=== PATIENT | female | born 1980 ===

== ENCOUNTER 2017-06-18 16:35 | Inpatient (IN) | payer BC, OTHER ==
[2017-06-18 18:27] LABS: URINE BILIRUBIN NEGATIVE (NEGATIVE); URINE BLOOD NEGATIVE (NEGATIVE); URINE GLUCOSE (UA) NEGATIVE (NEGATIVE); URINE LEUKOCYTE ESTERASE NEGATIVE Leu/uL (NEGATIVE); URINE PROTEIN NEGATIVE mg/dL (<30 mg/dL); URINE UROBILINOGEN 0.2 E.U./dL (<1 E.U./dL)
[2017-06-18 18:30] LABS: URINE APPEARANCE CLEAR (CLEAR); URINE COLOR YELLOW (YELLOW)
[2017-06-18 18:36] LABS: HCG,QUALITATIVE URINE NEGATIVE (NEGATIVE)
[2017-06-18 18:49] LABS: BASO # 0.01 K/mm3 (0.0-2.0); BASO % 0.2 % (0.0-3.0); EOS % 0.2 % (1.5-5.0); GRAN # 2.61 (1.4-6.5); GRAN % 47.8 % (50.0-68.0); HEMOGLOBIN 8.3 g/dL (12.0-16.0); LYMPH # 2.1 (1.2-3.4); LYMPH % 39.2 % (22.0-35.0); MEAN CORPUSCULAR HEMOGLOBIN 16.4 pg (25.0-35.0); MEAN CORPUSCULAR HGB CONC 27.3 g/dl (31.0-37.0); MEAN PLATELET VOLUME 8.9 fl (7.0-11.0); MONO # 0.7 (0.1-0.6); MONO % 12.6 % (1.0-6.0); RBC 5.07 10^6/uL (3.5-6.1); RED CELL DISTRIBUTION WIDTH 17.2 % (11.5-14.5); WHITE BLOOD COUNT 5.5 10^3/ul (4.5-11.0)
[2017-06-18 18:55] LABS: INR 1.15 (0.93-1.08); PARTIAL THROMBOPLASTIN TIME 29.1 Seconds (25.1-36.5); PROTHROMBIN TIME 13.2 SECONDS (9.4-12.5)
[2017-06-18 18:56] LABS: ALB/GLOB RATIO 1.2 (1.1-1.8); ALBUMIN 4.1 g/dL (3.0-4.8); ALT/SGPT 52 U/L (7-56); AST/SGOT 44 U/L (14-36); BLOOD UREA NITROGEN 12 mg/dL (7-21); CALCIUM 9.9 mg/dL (8.4-10.5); GFR AFRICAN-AMERICAN > 60; GFR NON-AFRICAN AMERICAN > 60
[2017-06-18 19:06] LABS: B-TYPE NATRIURETIC PEPTIDE 81.9 pg/mL (0-450)
[2017-06-18 19:08] LABS: TROPONIN I < 0.01 ng/mL
[2017-06-18 19:31] LABS: T4 > 24.9 ug/dL (5.5-11.0)
--- NOTE | 2017-06-18 20:31 | ED PDOC ---
Arrival/HPI - General Chief Complaint: Weakness/Neurological Deficit Time Seen by Provider: 06/18/17 17:31 Historian: Patient - History of Present Illness Narrative History of Present Illness (Text): 06/18/17 20:28 Patient is a 37 yo female with past medical history of hyperthyroidism, "I think Graves disease", noncompliance with thyroid medication for 6 months, presents to Emergency Department from outside clinic reportedly with history of abnormal EKG and dyspnea with exertion. Patient states for past several weeks she has felt shaky and occasionally dizzy and lightheaded. Denies heat/cold intolerance, denies diarrhea. States she became concerned over past three days when she became short of breath with exertion, specifically walking up two flights of steps to her apartment. SHE CURRENTLY DENIES CHEST PAIN OR PLEURITIC PAIN. She denies calf pain or swelling. Denies fevers or chills. Denies bloody urine or stool. States she has had heavier menstrual bleeding over past several months. Time/Duration: Prior to Arrival Symptom Onset: Gradual Past Medical History - Cardiac Hx Cardiac Disorders: No - Pulmonary Hx Respiratory Disorders: No - Neurological Hx Neurological Disorder: No - HEENT Hx HEENT Disorder: No - Renal Hx Renal Disorder: No - Endocrine/Metabolic Hx Hyperthyroidism: Yes - Hematological/Oncological Hx Blood Disorders: No - Integumentary Hx Dermatological Disorder: No - Musculoskeletal/Rheumatological Hx Musculoskeletal Disorders: No - Gastrointestinal Hx Gastrointestinal Disorders: No - Genitourinary/Gynecological Hx Genitourinary Disorders: No - Psychiatric Hx Psychophysiologic Disorder: No Hx Substance Use: No - Surgical History Hx Tubal Ligation: Yes Other/Comment: Bladder lift - Anesthesia Hx Anesthesia: No Family/Social History Family/Social History: Unknown Family HX Smoking Status: Never Smoked Hx Alcohol Use: No Hx Substance Use: No Allergies/Home Meds Allergies/Adverse Reactions: Allergies No Known Allergies Allergy (Verified 06/18/17 16:51) Home Medications: Home Meds Medication Instructions Recorded Confirmed Methimazole [Methimazole] 20 mg PO BID 11/18/15 06/18/17 Review of Systems - Review of Systems Constitutional: Fatigue. absent: Fevers Eyes: absent: Vision Changes, Photophobia, Eye Pain ENT: absent: Hearing Changes, Sore Throat, Rhinorrhea Respiratory: absent: SOB, Wheezing Cardiovascular: Palpitations, GARCIA. absent: Chest Pain, Edema, Calf Pain, Orthopnea, Syncope Gastrointestinal: absent: Abdominal Pain, Nausea, Vomiting, Appetite Changes Genitourinary Female: Vaginal Bleeding. absent: Dysuria, Frequency, Hematuria, Vaginal Discharge Musculoskeletal: absent: Back Pain Skin: absent: Rash Neurological: Dizziness. absent: Headache, Focal Weakness, Gait Changes Endocrine: absent: Diaphoresis, Polyuria, Polydipsia Hemo/Lymphatic: absent: Easy Bleeding, Easy Bruising Psychiatric: absent: Depression Physical Exam Vital Signs Reviewed: Yes Vital Signs Temp Pulse Resp BP Pulse Ox 06/18/17 21:04 100 H 18 113/71 100 06/18/17 16:53 98.1 F 104 H 19 117/64 99 Temperature: Afebrile Pulse: Tachycardic Respiratory Rate: Normal Appearance: Positive for: Non-Toxic Pain Distress: Mild Mental Status: Positive for: Alert and Oriented X 3 - Systems Exam Head: Present: Atraumatic, Normocephalic Pupils: Present: PERRL Extroacular Muscles: Present: EOMI Conjunctiva: Present: Other (no exopthalmos). No: Injected Ears: No: Erythema Mouth: Present: Moist Mucous Membranes Pharnyx: No: ERYTHEMA Nose (Internal): Present: Normal Inspection Neck: Present: Normal Range of Motion. No: Meningeal Signs Respiratory/Chest: Present: Clear to Auscultation. No: Respiratory Distress Cardiovascular: Present: Tachycardic Abdomen: No: Tenderness, Distention Rectal: No: Gross Blood Back: No: CVA Tenderness, Midline Tenderness Upper Extremity: Present: Normal ROM, NORMAL PULSES. No: Cyanosis, Edema Lower Extremity: Present: NORMAL PULSES, Neurovascularly Intact. No: Edema, CALF TENDERNESS Neurological: Present: Motor Func Grossly Intact, Normal Sensory Function, Norm Deep Tendon Reflexes Skin: Present: Warm Psychiatric: Present: Alert, Normal Insight, Normal Concentration Medical Decision Making ED Course and Treatment: 06/18/17 20:32 Patient on examination reports shortness of breath with exertion. She denies chest pain, although she has abnormal EKG with normal sinus rhythm rate of 94 with inferior and anterolateral t wave abnormality. No calf pain. No smoking. NO OCPs. No recent travel or pronged immobilization. I suspect a component of thryoid disease, although patient with normal temp, no gi symptoms currently, no cv instability aside from occasional tachycardia. She is noted to be anemic, CURRENTLY NO ACTIVE BLEEDING but there is history of heavier menstrual periods. Given thyroid study results, suspect component of hyperthryoidism, currently not thyroid storm although will admit based on abnormal EKG, dyspnea with exertion. No hypoxia noted. No plain noted. Treatment plan and abnormal labs reviewed with patient she is in agreement with treatment plan. 06/18/17 21:[address] Coppola to hospitalist service. - Lab Interpretations Lab Results: 06/18/17 18:30 06/18/17 18:30 Lab Results 06/18/17 18:30: PT 13.2 H, INR 1.15 H, APTT 29.1 06/18/17 18:30: Thyroxine (T4) > 24.9 H, TSH 3rd Generation < 0.02 L, Beta HCG, Quant < 2.39 06/18/17 18:30: Sodium 139, Potassium 3.5 L, Chloride 101, Carbon Dioxide 28, Anion Gap 14, BUN 12, Creatinine 0.4 L, Est GFR ( Amer) > 60, Est GFR ( Non-Af Amer) > 60, Random Glucose 106, Calcium 9.9, Magnesium 2.0, Total Bilirubin 0.2, AST 44 H, ALT 52, Alkaline Phosphatase 96, Lactate Dehydrogenase 276 L, Total Creatine Kinase < 20 L, Troponin I < 0.01, NT-Pro-B Natriuret Pep 81.9, Total Protein 7.6, Albumin 4.1, Globulin 3.5, Albumin/Globulin Ratio 1.2 06/18/17 18:30: WBC 5.5 D, RBC 5.07, Hgb 8.3 L, Hct 30.4 L, MCV 60.0 L, MCH 16.4 L, MCHC 27.3 L, RDW 17.2 H, Plt Count 331, MPV 8.9, Gran % 47.8 L, Lymph % (Auto) 39.2 H, [place] % (Auto) 12.6 H, Eos % (Auto) 0.2 L, Baso % (Auto) 0.2, Gran # 2.61, Lymph # (Auto) 2.1, [place] # (Auto) 0.7 H, Eos # (Auto) 0.0, Baso # ( Auto) 0.01 06/18/17 18:11: Urine Color Yellow, Urine Appearance Clear, Urine pH 6.0, Ur Specific [place] >= 1.030, Urine Protein Negative, Urine Glucose (UA) Negative, Urine Ketones Negative, Urine Blood Negative, Urine Nitrate Negative, Urine Bilirubin Negative, Urine Urobilinogen 0.2, Ur Leukocyte Esterase Negative, Urine HCG, Qual Negative - RAD Interpretation Radiology Orders: 06/18/17 17:58 CHEST PORTABLE [RAD] Stat - Medication Orders Current Medication Orders: Aspirin (Aspirin Chewable) 81 mg PO STAT STA Stop: 06/18/17 21:13 Potassium Chloride (K-Dur 20 Meq Er Tab) 20 meq PO STAT STA Stop: 06/18/17 21:14 Disposition/Present on Arrival - Present on Arrival Any Indicators Present on Arrival: No History of DVT/PE: No History of Uncontrolled Diabetes: No Urinary Catheter: No History of Decub. Ulcer: No History Surgical Site Infection Following: None - Disposition Have Diagnosis and Disposition been Completed?: Yes Diagnosis: Dyspnea on exertion, Hyperthyroidism, Abnormal EKG, Anemia Disposition: HOSPITALIZED Disposition Time: 20:36 Patient Plan: Admission, Telemetry Patient Problems: Current Active Problems Problem Status Onset Abnormal EKG Acute Anemia Acute Dyspnea on exertion Acute Hyperthyroidism Acute Condition: FAIR Referrals: Maya Garrido MD [Primary Care Provider] - Follow up with primary Forms: [email or web address] (Turkmen)
[2017-06-18] MEDS ORDERED: Potassium Chloride 20 mEq ER Tab PO STA (21:13)
--- NOTE | 2017-06-18 21:17 | CP.PCM.HP ---
History of Present Illness - History of Present Illness History of Present Illness: Marivel Montalvo, PGY1, H&P for Coppola: CC: abnormal EKG, GARCIA 37 yo female with past medical history of hyperthyroidism, presents for dyspnea on exertion for past 4-5 days. Reports GARCIA, especially for walking 2 flights of stairs to her apartment. Pt states that she discontinued her methimazole 6 months ago due to insurance issues. Also, complains of hot flashes, palpitations, dizziness, generalized weakness that have been worsening for past few months. She wanted to find a PMD to get her script written for methimazole, but they were taking time in getting her an appt. She instead went to Urgent care, where they found an "abnormal EKG" and told her to come to hospital. Denies cp, diaphoresis, LOC, syncope, orthopnea, leg swelling, paroxysmal noct dyspnea, pleuritic cp, fever, chills, urinary symptoms. NO OCPs. She also verbalizes heavy menstrual periods for past few years. In ED, HR elevated 104, afebrile with stable BP hgb 8.3, K 3.5. AST 44, LDH 276 , trop neg x1. T4 >24.9, TSH<0.02, HCG neg. 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 PMH: Graves dz (dx at age 20) PSH: Bladder lift, 4 All: NKA FH: Mother, breast cancer, HTN No thyroid/clotting disorders in family SH: Lives with and 4 kids. 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 Drinks wine occasionally. Former smoker, quit few years ago, 1 ppdx 10 years prior. Denies illicit drug use. Home meds: methimazole 20 bid Present on Admission - Present on Admission Any Indicators Present on Admission: No History of DVT/PE: No History of Uncontrolled Diabetes: No Urinary Catheter: No Decubitus Ulcer Present: No Review of Systems - Review of Systems All systems: reviewed and no additional remarkable complaints except Review of Systems: as per HPI Past Patient History - Past Social History Smoking Status: Never Smoked - CARDIAC Hx Cardiac Disorders: No - PULMONARY Hx Respiratory Disorders: No - NEUROLOGICAL Hx Neurological Disorder: No - HEENT Hx HEENT Problems: No - RENAL Hx Chronic Kidney Disease: No - ENDOCRINE/METABOLIC Hx Hyperthyroidism: Yes - HEMATOLOGICAL/ONCOLOGICAL Hx Blood Disorders: No - INTEGUMENTARY Hx Dermatological Problems: No - MUSCULOSKELETAL/RHEUMATOLOGICAL Hx Musculoskeletal Disorders: No - GASTROINTESTINAL Hx Gastrointestinal Disorders: No - GENITOURINARY/GYNECOLOGICAL Hx Genitourinary Disorders: No - PSYCHIATRIC Hx Psychophysiologic Disorder: No Hx Substance Use: No - SURGICAL HISTORY Hx Tubal Ligation: Yes Other/Comment: Bladder lift - ANESTHESIA Hx Anesthesia: No Meds Allergies/Adverse Reactions: Allergies Allergy/AdvReac Type Severity Reaction Status Date / Time No Known Allergies Allergy Verified 06/18/17 16:51 Physical Exam - Constitutional Appears: Non-toxic, No Acute Distress - Head Exam Head Exam: ATRAUMATIC, NORMOCEPHALIC - Eye Exam Eye Exam: EOMI, PERRL. absent: Conjunctival injection, Nystagmus, Scleral icterus Pupil Exam: NORMAL ACCOMODATION, PERRL. absent: Fixed, Irregular, Miosis, Mydriatic, Unequal Additional comments: no exopthalmos, lig lag - ENT Exam ENT Exam: Mucous Membranes Moist - Neck Exam Neck exam: Positive for: Full Rom - Respiratory Exam Respiratory Exam: Clear to Auscultation Bilateral, NORMAL BREATHING PATTERN. absent: Accessory Muscle Use, Rales, Rhonchi, Wheezes, Stridor - Cardiovascular Exam Cardiovascular Exam: Tachycardia, +S1, +S2. absent: Systolic Murmur - GI/Abdominal Exam GI & Abdominal Exam: Normal Bowel Sounds, Soft. absent: Distended, Firm, Guarding, Mass, Rebound, Rigid, Tenderness - Extremities Exam Extremities exam: Positive for: normal inspection. Negative for: calf tenderness, pedal edema - Back Exam Back exam: NORMAL INSPECTION. absent: CVA tenderness (L), CVA tenderness (R) - Neurological Exam Neurological exam: Alert, Oriented x3 - Psychiatric Exam Psychiatric exam: Normal Affect, Normal Mood - Skin Skin Exam: Dry, Normal Color, Warm Additional comments: no pallor Results - Vital Signs Recent Vital Signs: Last Vital Signs Temp 98.1 F 06/18/17 16:53 Pulse 100 H 06/18/17 21:04 Resp 18 06/18/17 21:04 BP 113/71 06/18/17 21:04 Pulse Ox 100 06/18/17 21:04 - Labs Result Diagrams: 06/18/17 18:30 06/18/17 18:30 Labs: Laboratory Results - last 24 hr 06/18/17 06/18/17 06/18/17 18:11 18:30 18:30 WBC 5.5 D RBC 5.07 Hgb 8.3 L Hct 30.4 L MCV 60.0 L MCH 16.4 L MCHC 27.3 L RDW 17.2 H Plt Count 331 MPV 8.9 Gran % 47.8 L Lymph % (Auto) 39.2 H [place] % (Auto) 12.6 H Eos % (Auto) 0.2 L Baso % (Auto) 0.2 Gran # 2.61 Lymph # (Auto) 2.1 [place] # (Auto) 0.7 H Eos # (Auto) 0.0 Baso # (Auto) 0.01 PT INR APTT Sodium 139 Potassium 3.5 L Chloride 101 Carbon Dioxide 28 Anion Gap 14 BUN 12 Creatinine 0.4 L Est GFR ( Amer) > 60 Est GFR (Non-Af Amer) > 60 Random Glucose 106 Calcium 9.9 Magnesium 2.0 Total Bilirubin 0.2 AST 44 H ALT 52 Alkaline Phosphatase 96 Lactate Dehydrogenase 276 L Total Creatine Kinase < 20 L Troponin I < 0.01 NT-Pro-B Natriuret Pep 81.9 Total Protein 7.6 Albumin 4.1 Globulin 3.5 Albumin/Globulin Ratio 1.2 Thyroxine (T4) TSH 3rd Generation Beta HCG, Quant Urine Color Yellow Urine Appearance Clear Urine pH 6.0 Ur Specific [place] >= 1.030 Urine Protein Negative Urine Glucose (UA) Negative Urine Ketones Negative Urine Blood Negative Urine Nitrate Negative Urine Bilirubin Negative Urine Urobilinogen 0.2 Ur Leukocyte Esterase Negative Urine HCG, Qual Negative 06/18/17 06/18/17 18:30 18:30 WBC RBC Hgb Hct MCV MCH MCHC RDW Plt Count MPV Gran % Lymph % (Auto) [place] % (Auto) Eos % (Auto) Baso % (Auto) Gran # Lymph # (Auto) [place] # (Auto) Eos # (Auto) Baso # (Auto) PT 13.2 H INR 1.15 H APTT 29.1 Sodium Potassium Chloride Carbon Dioxide Anion Gap BUN Creatinine Est GFR ( Amer) Est GFR (Non-Af Amer) Random Glucose Calcium Magnesium Total Bilirubin AST ALT Alkaline Phosphatase Lactate Dehydrogenase Total Creatine Kinase Troponin I NT-Pro-B Natriuret Pep Total Protein Albumin Globulin Albumin/Globulin Ratio Thyroxine (T4) > 24.9 H TSH 3rd Generation < 0.02 L Beta HCG, Quant < 2.39 Urine Color Urine Appearance Urine pH Ur Specific [place] Urine Protein Urine Glucose (UA) Urine Ketones Urine Blood Urine Nitrate Urine Bilirubin Urine Urobilinogen Ur Leukocyte Esterase Urine HCG, Qual Assessment & Plan - Assessment and Plan (Free Text) Assessment: 37 year old female with PMH Graves disease, noncomplaint with methimazole for 6 months, presents for dyspnea on exertion, generalized weakness/fatigue: GARCIA, generalized weakness: 2/2 cardiovascular effects of hyperthyroid state, ruled out heart failure; thyroid storm ruled out - BNP nrml - EKG showed HR 94. T wave inversions in leads II, III, avf, v3-v6 - inferior and anterolateral ischemia? - trop neg x1. f/u serial trops, ekg in AM - TSH low, T4 high - Endo consulted. f/u recs - Propranolol 60 in ED. start daily same dosage - methimazole 20 bid - ASA 81 - Cardio consulted. F/u recs - Echo - lipid panel, A1c - HCG neg - HHD Anemia: likely from menorrhagia - iron studies, b12, folate - consider starting feosol Mildly eleavted AST: - hep panel - consider RUQ US PPX: pepcid, scds Discussed with Dr Coppola. - Date & Time Date: 06/19/17 Time: 04:48
[2017-06-19] MEDS ORDERED: Propranolol 60 mg ER Cap PO STA (00:02)
[2017-06-19 00:40] LABS: IRON 13 ug/dL (45-180)
[2017-06-19 00:50] LABS: % IRON SATURATION 3 % (20-55); TOTAL IRON BINDING CAPACITY 389 ug/dL (265-497)
[2017-06-19 01:10] LABS: B-TYPE NATRIURETIC PEPTIDE 77.1 pg/mL (0-450)
[2017-06-19 01:50] VITALS: BMI 10.6
[2017-06-19 06:24] LABS: BASO # 0.01 K/mm3 (0.0-2.0); BASO % 0.2 % (0.0-3.0); EOS % 0.4 % (1.5-5.0); GRAN # 2.33 (1.4-6.5); GRAN % 45.9 % (50.0-68.0); LYMPH # 1.9 (1.2-3.4); LYMPH % 37.9 % (22.0-35.0); MEAN CELL VOLUME 60.2 fl (80.0-105.0); MEAN CORPUSCULAR HEMOGLOBIN 16.4 pg (25.0-35.0); MEAN CORPUSCULAR HGB CONC 27.2 g/dl (31.0-37.0); MEAN PLATELET VOLUME 8.9 fl (7.0-11.0); MONO # 0.8 (0.1-0.6); MONO % 15.6 % (1.0-6.0); RBC 4.88 10^6/uL (3.5-6.1); RED CELL DISTRIBUTION WIDTH 17.4 % (11.5-14.5); WHITE BLOOD COUNT 5.1 10^3/ul (4.5-11.0)
--- NOTE | 2017-06-19 07:31 | CARD ---
APPROVED REPORT EKG Measurement Heart [id number] [place] 150P43 [id number] <Conclusion> Poor data quality, interpretation may be adversely affected Normal sinus rhythm T wave abnormality, consider inferior ischemia T wave abnormality, consider anterolateral ischemia Abnormal ECG
--- NOTE | 2017-06-19 09:01 | RAD ---
HISTORY: palpitations COMPARISON: 11/18/2015 FINDINGS: LUNGS: No active pulmonary disease. PLEURA: No significant pleural effusion identified, no pneumothorax apparent. CARDIOVASCULAR: Normal. OSSEOUS STRUCTURES: No significant abnormalities. VISUALIZED UPPER ABDOMEN: Normal. OTHER FINDINGS: None. IMPRESSION: No active disease.
[2017-06-19] MEDS: Propranolol 60 mg ER Cap PO SCH (09:42)
--- NOTE | 2017-06-19 09:47 | CARD ---
APPROVED REPORT EKG Measurement Heart [id number] CT 156P50 [id number] <Conclusion> Normal sinus rhythm LVH STTW changes c/w ischemia No change
--- NOTE | 2017-06-19 11:53 | CON ---
DATE: 06/19/2017 CARDIOLOGY CONSULTATION HISTORY OF PRESENT ILLNESS: The patient is a 37-year-old woman who presents with fatigue and dizziness. PAST MEDICAL HISTORY: The patient's past medical history is notable for a long history of smoking with greater than one pack a day for more than 10 years. In addition, she has documented hyperthyroidism in the past and stopped taking her medications. She denies chest pain, denies shortness of breath. No previous cardiac history. Negative diabetes mellitus. Negative hypertension. SOCIAL HISTORY: She is a former smoker. REVIEW OF SYSTEMS: A 14-point review of systems is reviewed. No additional cardiac symptoms were noted. PHYSICAL EXAMINATION VITAL SIGNS: Blood pressure is 113/66, the heart rate is in the 90s, normal sinus rhythm. NECK: Negative JVD. LUNGS: Without rales. HEART: Reveals S1, S2. EXTREMITIES: Without edema. EKG shows normal sinus rhythm with no acute changes. LABORATORY DATA: Includes troponins are negative x2. Her TSH is low with elevated T4, hemoglobin is 8. IMPRESSION: 1. Hyperthyroidism. 2. Pulmonary hypertension documented on echocardiogram. 3. Normal left ventricular function. 4. Anemia. 5. Need to rule out pulmonary disease. PLAN: Given these findings, the patient's anemia as well as her lung disease would likely explain why the patient's dizzy and occasional shortness of breath. We will need a Pulmonary consultation as well as pulmonary function test to evaluate her lung function. Titus Bahena MD
[2017-06-19 12:32] LABS: FERRITIN 5.9 ng/mL
[2017-06-19 12:37] LABS: HEPATITIS B SURFACE AG Negative (NEGATIVE)
[2017-06-19 12:42] LABS: HEPATITIS A IGM NEGATIVE (NEGATIVE); HEPATITIS B CORE AB NEGATIVE (NEGATIVE)
[2017-06-19 12:54] LABS: HEPATITIS C ANTIBODY NEGATIVE (NEGATIVE)
[2017-06-19 13:03] LABS: FOLATE > 20.0 ng/mL
--- NOTE | 2017-06-20 06:25 | CON ---
DATE: LOCATION: Room 262, [address] [place] [address] HISTORY OF PRESENT ILLNESS: This is a 37-year-old female admitted with progressive shortness of breath and supervening dizziness and lightheadedness and is being referred now for endocrine evaluation because of marked hyperthyroidism as noted thereof. PAST MEDICAL HISTORY: History of hyperthyroidism related to Graves disease and has been apparently off medications for over 6 months or more prior to this admission, history of hypertension, history of recent onset of palpitations and precordial chest pain and was actually seen in the urgent care facility where she was found to have an abnormal EKG and was recommended to come to the ER for further evaluation and management. FAMILY HISTORY: Positive for hypertension and her mother had breast cancer. No known thyroid endocrinopathy. SOCIAL HISTORY: Patient has a supportive family. Used to smoke a pack a day for over 10 years, but quit a few years ago. 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 REVIEW OF SYSTEMS: As mentioned above. Admits to generalized body weakness with easy fatigability and tiredness and suboptimal energy level. Also admits to marked insomnia with disruptive sleep patterns. Moreover, also admits to increasing generalized anxiety with mood swings and instability as noted. Also admits to progressive bouts of dizziness and lightheadedness, worse on the day of admission. Moreover, admits to precordial chest pain with episodic palpitations especially on exertion with also episodic shortness of breath as noted. Her oral intake has been variable with nausea, dyspepsia and hyperdefecation. No recent alterations of bowel and urinary patterns, otherwise. PHYSICAL EXAMINATION: GENERAL: This is an asthenic female, in no apparent distress. VITAL SIGNS: Blood pressure of 150/80, pulse of 110 beats per minute and regular, temperature 98, respirations 20, height is 4 feet 11 inches, weight is 114 pounds. HEENT: Head normocephalic. Eyes anicteric with pink conjunctivae. Funduscopy not possible at this time. Ears, nose and throat, otherwise, normal. NECK: Supple. Thyroid gland shows moderate thyromegaly, which is firm and nontender with positive thyroid bruits. No cervical adenopathy noted otherwise. HEART: Shows hyperdynamic precordium. S1, S2 is rapid and regular. LUNGS: Clear to auscultation. ABDOMEN: Flat, soft with positive bowel sounds. EXTREMITIES: No peripheral edema. Pulses are +2 bilaterally. LABORATORY DATA: Her chemistry showed a BUN of 12, sodium 135, potassium 3.5, chloride 101, CO2 28, glucose 106 and creatinine 0.4. Her total T4 or thyroxine level is greater than 24.9 with a TSH of less than 0.02 and alkaline phosphatase of 96, LDH of 276, troponin of less than 0.01 and a total cholesterol of 118, triglycerides of 85, HDL 31, LDL 60. 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 There is a significant history of drug omission related to insurance constraints and has been off medications for over 6 months or more as noted. She also has overt constitutional symptoms and hyperadrenergic manifestations related to the overt hyperthyroid condition as mentioned. PLAN OF MANAGEMENT: As discussed with the patient and staff, we will titrate to a maximum dosing regimen of her Tapazole at 20 mg p.o. t.i.d. after meals, to start today. We will obtain a comprehensive thyroid hormonal profile with a total and free T4 and TSH tomorrow morning. We will also add thyroid antibodies with a thyroid stimulating immunoglobulin and a thyroid peroxidase antibody, which will confirm and/or indicate the presence of underlying thyroid autoimmunity. We will obtain serial chemistries and supplement accordingly needed. We will also obtain serial thyroid studies and adjust her dose regimen accordingly. We will obtain a thyroid ultrasound if not already ordered at this time to fully delineate her thyroid lobe dimensions. We will also discuss the definitive therapeutic options, which is either continued medical therapy versus radioactive iodine ablation and if indeed it is documented that she has a moderately enlarged goiter, then should consider even surgical resection with a near total thyroidectomy as indicated. We will follow. Lyric Chiang MD
[2017-06-20 07:11] LABS: BASO # 0.01 K/mm3 (0.0-2.0); BASO % 0.2 % (0.0-3.0); EOS % 0.7 % (1.5-5.0); GRAN # 3.31 (1.4-6.5); GRAN % 56.6 % (50.0-68.0); HEMOGLOBIN 8.3 g/dL (12.0-16.0); LYMPH # 1.7 (1.2-3.4); LYMPH % 29.1 % (22.0-35.0); MEAN CELL VOLUME 60.7 fl (80.0-105.0); MEAN CORPUSCULAR HEMOGLOBIN 16.4 pg (25.0-35.0); MONO # 0.8 (0.1-0.6); MONO % 13.4 % (1.0-6.0); PLATELET COUNT 285 10^3/uL (120.0-450.0); RBC 5.06 10^6/uL (3.5-6.1); RED CELL DISTRIBUTION WIDTH 17.6 % (11.5-14.5); WHITE BLOOD COUNT 5.8 10^3/ul (4.5-11.0)
[2017-06-20 07:43] LABS: ALB/GLOB RATIO 1.2 (1.1-1.8); ALBUMIN 3.9 g/dL (3.0-4.8); ALT/SGPT 44 U/L (7-56); AST/SGOT 60 U/L (14-36); BLOOD UREA NITROGEN 10 mg/dL (7-21); CALCIUM 9.3 mg/dL (8.4-10.5); GFR AFRICAN-AMERICAN > 60; GFR NON-AFRICAN AMERICAN > 60
[2017-06-20 07:52] LABS: FREE T4 4.98 ng/dL (0.78-2.19)
[2017-06-20 08:24] LABS: T4 > 24.9 ug/dL (5.5-11.0)
--- NOTE | 2017-06-20 09:19 | CARD ---
APPROVED REPORT EXAM: Two-dimensional and M-mode echocardiogram with Doppler and color Doppler. Other Information Quality : AverageRhythm : INDICATION Dyspnea 2D DIMENSIONS Left Atrium (2D)4.1 (1.6-4.0cm)IVSd1.3 (0.7-1.1cm) LVDd3.9 (3.9-5.9cm)PWd1.2 (0.7-1.1cm) LVDs2.6 (2.5-4.0cm)FS (%) 34.9 % LVEF (%)64.7 (>50%) M-Mode DIMENSIONS Aortic Root2.30 (2.2-3.7cm)Aortic Cusp Exc.1.50 (1.5-2.0cm) Aortic Valve AoV Peak Rtrylknb498.0cm/Serge Peak GR.15mmHg Mitral Valve MV E Qmfzuoqy41.3cm/sMV A Rqutftss31.6cm/sE/A ratio1.5 TDI E/Lateral E'0.0E/Medial E'0.0 Tricuspid Valve TR Peak [id number]/sRAP [id number] Peak Gr.54mmHg [id number] LEFT VENTRICLE The left ventricle is normal size. There is normal left ventricular wall thickness. The left ventricular function is normal. The left ventricular ejection fraction is within the normal range. There is normal LV segmental wall motion. RIGHT VENTRICLE The right ventricle is normal size. ATRIA The left atrium is mildly dilated. The right atrium size is normal. The interatrial septum is intact with no evidence for an atrial septal defect. AORTIC VALVE The aortic valve is normal in structure. MITRAL VALVE The mitral valve is normal in structure. Mitral regurgitation is mild. TRICUSPID VALVE The tricuspid valve is normal in structure. There is moderate tricuspid regurgitation. There is moderate pulmonary hypertension. PULMONIC VALVE The pulmonary valve is normal in structure. There is trace to mild pulmonic valvular regurgitation. GREAT VESSELS The aortic root is normal in size. PERICARDIAL EFFUSION There is no pericardial effusion. <Conclusion> The left ventricle is normal size. There is normal left ventricular wall thickness. The left ventricular function is normal. Mitral regurgitation is mild. There is moderate tricuspid regurgitation. There is moderate pulmonary hypertension.
[2017-06-20] MEDS: Propranolol 60 mg ER Cap PO SCH (09:47)
[2017-06-20 09:51] VITALS: BP 105/65; PULSE 66
[2017-06-20 10:34] VITALS: RESP 18; TEMP 98; O2SAT 99
--- NOTE | 2017-06-20 17:28 | CP.PCM.DIS ---
<David Sosa - Last Filed: 06/20/17 18:20> Provider - Provider Date of Admission: 06/18/17 20:58 Attending physician: Atiya Cordero MD Primary care physician: Maya Garrido MD Consults: CC: abnormal EKG, GARCIA 37 yo female with past medical history of hyperthyroidism, presents for dyspnea on exertion for past 4-5 days. Reports GARCIA, especially for walking 2 flights of stairs to her apartment. Pt states that she discontinued her methimazole 6 months ago due to insurance issues. Also, complains of hot flashes, palpitations, dizziness, generalized weakness that have been worsening for past few months. She wanted to find a PMD to get her script written for methimazole, but they were taking time in getting her an appt. She instead went to Urgent care, where they found an "abnormal EKG" and told her to come to hospital. In the ED, heart rate was elevated at 104, HgB stable at 8.4, Tropinins negative x 2, and HCG negative. EKG showed HR 94. T wave inversions in leads II, III, avf, v3-v6 - inferior and anterolateral ischemia TSH was found to be < 0.02 and Free T4 elevated at 4.98 and Thyroxine elevated at > 24.9. Morning Cortisol sample was WNL. Endocrinology was consulted on the case and patient was started on Methimazole and Inderal LA. Cardiology was also consulted on the case and ordered an ECHO which shoed normal LV function but moderate Tricuspid regurg and moderate pulmonary htn. Patient also found to have normocytic anemia with low Iron and TIBC. Patient also found to have elevated LFT's. Hepatitis Panel returned negative. UA was negative. Thyroid ultrasound showed multinodular thyroid with no suspicious masses. Patient to go home with Methimazole and Propranolol, She is to follow up with her primary medical physician. Patient called and asked to shrimp picker Iron Supplementation due to microcytic anemia. Ferosul 325 mg PO TID was sent to her pharmacy. Patient was agreeable to this new medication David Sosa, PGY-1 Time Spent in preparation of Discharge (in minutes): 45 Hospital Course - Lab Results Lab Results: Most Recent Lab Values WBC 5.8 10^3/ul (4.5-11.0) 06/20/17 06:00 RBC 5.06 10^6/uL (3.5-6.1) 06/20/17 06:00 Hgb 8.3 g/dL (12.0-16.0) L 06/20/17 06:00 Hct 30.7 % (36.0-48.0) L 06/20/17 06:00 MCV 60.7 fl (80.0-105.0) L 06/20/17 06:00 MCH 16.4 pg (25.0-35.0) L 06/20/17 06:00 MCHC 27.0 g/dl (31.0-37.0) L 06/20/17 06:00 RDW 17.6 % (11.5-14.5) H 06/20/17 06:00 Plt Count 285 10^3/uL (120.0-450.0) 06/20/17 06:00 MPV 8.9 fl (7.0-11.0) 06/19/17 05:30 Gran % 56.6 % (50.0-68.0) 06/20/17 06:00 Lymph % (Auto) 29.1 % (22.0-35.0) 06/20/17 06:00 Iroquois % (Auto) 13.4 % (1.0-6.0) H 06/20/17 06:00 Eos % (Auto) 0.7 % (1.5-5.0) L 06/20/17 06:00 Baso % (Auto) 0.2 % (0.0-3.0) 06/20/17 06:00 Gran # 3.31 (1.4-6.5) 06/20/17 06:00 Lymph # (Auto) 1.7 (1.2-3.4) 06/20/17 06:00 I[place]quois # (Auto) 0.8 (0.1-0.6) H 06/20/17 06:00 Eos # (Auto) 0.0 (0.0-0.7) 06/20/17 06:00 Baso # (Auto) 0.01 K/mm3 (0.0-2.0) 06/20/17 06:00 PT 13.2 SECONDS (9.4-12.5) H 06/18/17 18:30 INR 1.15 (0.93-1.08) H 06/18/17 18:30 APTT 29.1 Seconds (25.1-36.5) 06/18/17 18:30 Sodium 141 mmol/L (132-148) 06/20/17 06:00 Potassium 3.8 mmol/L (3.6-5.0) 06/20/17 06:00 Chloride 106 mmol/L (98-107) 06/20/17 06:00 Carbon Dioxide 25 mmol/L (21-33) 06/20/17 06:00 Anion Gap 14 (10-20) 06/20/17 06:00 BUN 10 mg/dL (7-21) 06/20/17 06:00 Creatinine 0.3 mg/dl (0.7-1.2) L 06/20/17 06:00 Est GFR ( Amer) > 60 06/20/17 06:00 Est GFR (Non-Af Amer) > 60 06/20/17 06:00 POC Glucose (mg/dL) 107 mg/dL (65-110) 06/18/17 18:35 Random Glucose 77 mg/dL (70-110) 06/20/17 06:00 Hemoglobin A1c 5.7 % (4.2-6.5) 06/18/17 18:30 Calcium 9.3 mg/dL (8.4-10.5) 06/20/17 06:00 Magnesium 2.0 mg/dL (1.7-2.2) 06/18/17 18:30 Iron 13 ug/dL (45-180) L 06/18/17 23:45 TIBC 389 ug/dL (265-497) 06/18/17 23:45 % Saturation 3 % (20-55) L 06/18/17 23:45 Ferritin 5.9 ng/mL 06/18/17 18:30 Total Bilirubin 0.1 mg/dL (0.2-1.3) L 06/20/17 06:00 AST 60 U/L (14-36) H D 06/20/17 06:00 ALT 44 U/L (7-56) 06/20/17 06:00 Alkaline Phosphatase 110 U/L (38-126) 06/20/17 06:00 Lactate Dehydrogenase 276 U/L (333-699) L 06/18/17 18:30 Total Creatine Kinase < 20 U/L (35-230) L 06/18/17 18:30 Troponin I < 0.01 ng/mL 06/19/17 05:30 NT-Pro-B Natriuret Pep 77.1 pg/mL (0-450) 06/18/17 18:30 Total Protein 7.1 g/dL (5.8-8.3) 06/20/17 06:00 Albumin 3.9 g/dL (3.0-4.8) 06/20/17 06:00 Globulin 3.2 gm/dL 06/20/17 06:00 Albumin/Globulin Ratio 1.2 (1.1-1.8) 06/20/17 06:00 Triglycerides 85 mg/dL (35-160) 06/18/17 18:30 Cholesterol 118 mg/dL (130-200) L 06/18/17 18:30 LDL Cholesterol Direct 60 mg/dL (0-129) 06/18/17 18:30 HDL Cholesterol 31 mg/dL (29-60) 06/18/17 18:30 Vitamin B12 366 pg/mL (239-931) 06/18/17 18:30 25-OH Vitamin D Total 29.9 NG/ML (30.0-100.0) L 06/20/17 06:15 Folate > 20.0 ng/mL 06/18/17 18:30 Free T4 4.98 ng/dL (0.78-2.19) H 06/20/17 06:15 Thyroxine (T4) > 24.9 ug/dL (5.5-11.0) H 06/20/17 06:15 TSH 3rd Generation < 0.02 mIU/mL (0.46-4.68) L 06/20/17 06:15 Beta HCG, Quant < 2.39 mIU/mL (0-6.15) 06/18/17 18:30 Cortisol AM Sample 14.4 ug/dL (4.46-22.7) 06/20/17 06:15 Urine Color Yellow (YELLOW) 06/18/17 18:11 Urine Appearance Clear (CLEAR) 06/18/17 18: Urine pH 6.0 (4.7-8.0) 06/18/17 18: Ur Specific Maybeury >= 1.030 (1.005-1.035) 06/18/17 18:11 Urine Protein Negative mg/dL (<30 mg/dL) 06/18/17 18:11 Urine Glucose (UA) Negative mg/dL (NEGATIVE) 06/18/17 18:11 Urine Ketones Negative mg/dL (NEGATIVE) 06/18/17 18:11 Urine Blood Negative (NEGATIVE) 06/18/17 18: Urine Nitrate Negative (NEGATIVE) 06/18/17 18:11 Urine Bilirubin Negative (NEGATIVE) 06/18/17 18:11 Urine Urobilinogen 0.2 E.U./dL (<1 E.U./dL) 06/18/17 18:11 Ur Leukocyte Esterase Negative Jose/uL (NEGATIVE) 06/18/17 18: Urine HCG, Qual Negative (NEGATIVE) 06/18/17 18:11 Hepatitis A IgM Ab Negative (NEGATIVE) 06/18/17 18:30 Hep Bs Antigen Negative (NEGATIVE) 06/18/17 18:30 Hep B Core IgM Ab Negative (NEGATIVE) 06/18/17 18:30 Hepatitis C Antibody Negative (NEGATIVE) 06/18/17 18:30 - Hospital Course Hospital Course: CC: abnormal EKG, GARCIA 37 yo female with past medical history of hyperthyroidism, presents for dyspnea on exertion for past 4-5 days. Reports GARCIA, especially for walking 2 flights of stairs to her apartment. Pt states that she discontinued her methimazole 6 months ago due to insurance issues. Also, complains of hot flashes, palpitations, dizziness, generalized weakness that have been worsening for past few months. She wanted to find a PMD to get her script written for methimazole, but they were taking time in getting her an appt. She instead went to Urgent care, where they found an "abnormal EKG" and told her to come to hospital. In the ED, heart rate was elevated at 104, HgB stable at 8.4, Tropinins negative x 2, and HCG negative. EKG showed HR 94. T wave inversions in leads II, III, avf, v3-v6 - inferior and anterolateral ischemia TSH was found to be < 0.02 and Free T4 elevated at 4.98 and Thyroxine elevated at > 24.9. Morning Cortisol sample was WNL. Endocrinology was consulted on the case and patient was started on Methimazole and Inderal LA. Cardiology was also consulted on the case and ordered an ECHO which shoed normal LV function but moderate Tricuspid regurg and moderate pulmonary htn. Pulmonolgy was consulted on the case. Patient also found to have normocytic anemia with low Iron and TIBC. Patient also found to have elevated LFT's. Hepatitis Panel returned negative. UA was negative. Thyroid ultrasound showed multinodular thyroid with no suspicious masses. Patient to go home with Methimazole and Propranolol, She is to follow up with her primary medical physician, her endocronologist (Dr. Lynch) on her July 17 appointment and Pulm (Dr. Scott). Patient is agreeable to plan and medications. Patient called and asked to shrimp picker Iron Supplementation due to microcytic anemia. Ferosul 325 mg PO TID was sent to her pharmacy. Patient was agreeable to this new medication. David Sosa, PGY-1 Discharge Exam - Head Exam Head Exam: ATRAUMATIC, NORMOCEPHALIC - Additional Findings Additional findings: - Constitutional Appears: Non-toxic, No Acute Distress - Head Exam Head Exam: ATRAUMATIC, NORMOCEPHALIC - Eye Exam Eye Exam: EOMI, PERRL. absent: Conjunctival injection, Nystagmus, Scleral icterus Pupil Exam: NORMAL ACCOMODATION, PERRL. absent: Fixed, Irregular, Miosis, Mydriatic, Unequal Additional comments: no exopthalmos, lig lag - ENT Exam ENT Exam: Mucous Membranes Moist - Neck Exam Neck exam: Positive for: Full Rom - Respiratory Exam Respiratory Exam: Clear to Auscultation Bilateral, NORMAL BREATHING PATTERN. absent: Accessory Muscle Use, Rales, Rhonchi, Wheezes, Stridor - Cardiovascular Exam Cardiovascular Exam: RRR, +S1, +S2. absent: Systolic Murmur - GI/Abdominal Exam GI & Abdominal Exam: Normal Bowel Sounds, Soft. absent: Distended, Firm, Guarding, Mass, Rebound, Rigid, Tenderness - Extremities Exam Extremities exam: Positive for: normal inspection. Negative for: calf tenderness, pedal edema - Back Exam Back exam: NORMAL INSPECTION. absent: CVA tenderness (L), CVA tenderness (R) - Neurological Exam Neurological exam: Alert, Oriented x3 - Psychiatric Exam Psychiatric exam: Normal Affect, Normal Mood - Skin Skin Exam: Dry, Normal Color, Warm Additional comments: no pallor Discharge Plan - Discharge Medications Prescriptions: Ferrous Sulfate [Ferosul] 325 mg PO TID #90 tablet Propranolol HCl [Inderal LA] 60 mg PO DAILY #30 cap.sa.24h - Follow Up Plan Condition: FAIR Disposition: HOME/ ROUTINE Instructions: Shortness of Breath (Dyspnea) (DC), Hyperthyroidism (Overactive Thyroid) (DC) Additional Instructions: Please follow up with your Staff Antisubmarine Officer as soon as possible. Please bring laboratory results with you during that visit Please take medications as instructed. Please follow up with your primary medical physician. Please make an appointment and follow up with Lung Doctor (Dr. Scott) regarding the Pulmonary hypertension. Referrals: Maya Garrido MD [Primary Care Provider] - Surya Lynch MD [Medical Doctor] - Nav Scott MD [Staff Provider] - <Atiya Cordero - Last Filed: 06/21/17 14:09> Provider - Provider Date of Admission: 06/18/17 20:58 Attending physician: Atiya Cordero MD Primary care physician: Maya Garrido MD Hospital Course - Lab Results Lab Results: Most Recent Lab Values WBC 5.8 10^3/ul (4.5-11.0) 06/20/17 06:00 RBC 5.06 10^6/uL (3.5-6.1) 06/20/17 06:00 Hgb 8.3 g/dL (12.0-16.0) L 06/20/17 06:00 Hct 30.7 % (36.0-48.0) L 06/20/17 06:00 MCV 60.7 fl (80.0-105.0) L 06/20/17 06:00 MCH 16.4 pg (25.0-35.0) L 06/20/17 06:00 MCHC 27.0 g/dl (31.0-37.0) L 06/20/17 06:00 RDW 17.6 % (11.5-14.5) H 06/20/17 06:00 Plt Count 285 10^3/uL (120.0-450.0) 06/20/17 06:00 MPV 8.9 fl (7.0-11.0) 06/19/17 05:30 Gran % 56.6 % (50.0-68.0) 06/20/17 06:00 Lymph % (Auto) 29.1 % (22.0-35.0) 06/20/17 06:00 Iroquois % (Auto) 13.4 % (1.0-6.0) H 06/20/17 06:00 Eos % (Auto) 0.7 % (1.5-5.0) L 06/20/17 06:00 Baso % (Auto) 0.2 % (0.0-3.0) 06/20/17 06:00 Gran # 3.31 (1.4-6.5) 06/20/17 06:00 Lymph # (Auto) 1.7 (1.2-3.4) 06/20/17 06:00 [place]ois # (Auto) 0.8 (0.1-0.6) H 06/20/17 06:00 Eos # (Auto) 0.0 (0.0-0.7) 06/20/17 06:00 Baso # (Auto) 0.01 K/mm3 (0.0-2.0) 06/20/17 06:00 PT 13.2 SECONDS (9.4-12.5) H 06/18/17 18:30 INR 1.15 (0.93-1.08) H 06/18/17 18:30 APTT 29.1 Seconds (25.1-36.5) 06/18/17 18:30 Sodium 141 mmol/L (132-148) 06/20/17 06:00 Potassium 3.8 mmol/L (3.6-5.0) 06/20/17 06:00 Chloride 106 mmol/L (98-107) 06/20/17 06:00 Carbon Dioxide 25 mmol/L (21-33) 06/20/17 06:00 Anion Gap 14 (10-20) 06/20/17 06:00 BUN 10 mg/dL (7-21) 06/20/17 06:00 Creatinine 0.3 mg/dl (0.7-1.2) L 06/20/17 06:00 Est GFR ( Amer) > 60 06/20/17 06:00 Est GFR (Non-Af Amer) > 60 06/20/17 06:00 POC Glucose (mg/dL) 107 mg/dL (65-110) 06/18/17 18:35 Random Glucose 77 mg/dL (70-110) 06/20/17 06:00 Hemoglobin A1c 5.7 % (4.2-6.5) 06/18/17 18:30 Calcium 9.3 mg/dL (8.4-10.5) 06/20/17 06:00 Magnesium 2.0 mg/dL (1.7-2.2) 06/18/17 18:30 Iron 13 ug/dL (45-180) L 06/18/17 23:45 TIBC 389 ug/dL (265-497) 06/18/17 23:45 % Saturation 3 % (20-55) L 06/18/17 23:45 Ferritin 5.9 ng/mL 06/18/17 18:30 Total Bilirubin 0.1 mg/dL (0.2-1.3) L 06/20/17 06:00 AST 60 U/L (14-36) H D 06/20/17 06:00 ALT 44 U/L (7-56) 06/20/17 06:00 Alkaline Phosphatase 110 U/L (38-126) 06/20/17 06:00 Lactate Dehydrogenase 276 U/L (333-699) L 06/18/17 18:30 Total Creatine Kinase < 20 U/L (35-230) L 06/18/17 18:30 Troponin I < 0.01 ng/mL 06/19/17 05:30 NT-Pro-B Natriuret Pep 77.1 pg/mL (0-450) 06/18/17 18:30 Total Protein 7.1 g/dL (5.8-8.3) 06/20/17 06:00 Albumin 3.9 g/dL (3.0-4.8) 06/20/17 06:00 Globulin 3.2 gm/dL 06/20/17 06:00 Albumin/Globulin Ratio 1.2 (1.1-1.8) 06/20/17 06:00 Triglycerides 85 mg/dL (35-160) 06/18/17 18:30 Cholesterol 118 mg/dL (130-200) L 06/18/17 18:30 LDL Cholesterol Direct 60 mg/dL (0-129) 06/18/17 18:30 HDL Cholesterol 31 mg/dL (29-60) 06/18/17 18:30 Vitamin B12 366 pg/mL (239-931) 06/18/17 18:30 25-OH Vitamin D Total 29.9 NG/ML (30.0-100.0) L 06/20/17 06:15 Folate > 20.0 ng/mL 06/18/17 18:30 Free T4 4.98 ng/dL (0.78-2.19) H 06/20/17 06:15 Thyroxine (T4) > 24.9 ug/dL (5.5-11.0) H 06/20/17 06:15 TSH 3rd Generation < 0.02 mIU/mL (0.46-4.68) L 06/20/17 06:15 Beta HCG, Quant < 2.39 mIU/mL (0-6.15) 06/18/17 18:30 Cortisol AM Sample 14.4 ug/dL (4.46-22.7) 06/20/17 06:15 Urine Color Yellow (YELLOW) 06/18/17 18:11 Urine Appearance Clear (CLEAR) 06/18/17 18: Urine pH 6.0 (4.7-8.0) 06/18/17 18:11 Ur Specific Maybeury >= 1.030 (1.005-1.035) 06/18/17 18:11 Urine Protein Negative mg/dL (<30 mg/dL) 06/18/17 18:11 Urine Glucose (UA) Negative mg/dL (NEGATIVE) 06/18/17 18: Urine Ketones Negative mg/dL (NEGATIVE) 06/18/17 18: Urine Blood Negative (NEGATIVE) 06/18/17 18:11 Urine Nitrate Negative (NEGATIVE) 06/18/17 18: Urine Bilirubin Negative (NEGATIVE) 06/18/17 18: Urine Urobilinogen 0.2 E.U./dL (<1 E.U./dL) 06/18/17 18: Ur Leukocyte Esterase Negative Jose/uL (NEGATIVE) 06/18/17 18: Urine HCG, Qual Negative (NEGATIVE) 06/18/17 18: Hepatitis A IgM Ab Negative (NEGATIVE) 06/18/17 18:30 Hep Bs Antigen Negative (NEGATIVE) 04/12/18 18:30 Hep B Core IgM Ab Negative (NEGATIVE) 06/18/17 18:30 Hepatitis C Antibody Negative (NEGATIVE) 06/18/17 18:30 Attending/Attestation - Attestation I have personally seen and examined this patient.: Yes I have fully participated in the care of the patient.: Yes I have reviewed all pertinent clinical information, including history, physical exam and plan: Yes Notes (Text): I have seen and examined the patient at bedside. Agree with the above note dictated by the resident. Vitals, labs and imaging reviewed personally by me. Discussed the plan in detail with the patient and the resident. All questions answered. Patient is cleared to go home by production underwriter, electrician manager and distribution lineman. Advised patient to continue propranolol, methimazole and ferrous sulfate. Patient needs outpatient PFTs and sleep study to evaluate pulmonary hypertension. Upon discharge patient will follow up with Dr Maya Garrido, production underwriter and Dr Scott. Dr Atiya Cordero
--- NOTE | 2017-06-20 17:30 | US ---
HISTORY: Diffuse toxic goiter/hyperthyroidism TECHNIQUE: Sonographic evaluation of the thyroid gland. COMPARISON: 08/06/2014 FINDINGS: RIGHT LOBE: Measures 6.2 x 1.8 x 2.6 cm. Markedly heterogeneous echotexture. Increased vascularity. Nodules: Echogenic upper pole nodule, 6 x 7 x 7 mm. Previously identified hypoechoic nodule not evident. . LEFT LOBE: Measures 6.6 x 2.0 x 2.5 cm. Markedly heterogeneous echotexture. Hypervascular. Nodules: Mid lobe hypoechoic solid nodule, 1.1 x 0.6 x 1.0 cm. Heterogeneously isoechoic lower pole nodule, 1.1 x 1.4 x 1.4 cm. Neither of these nodules was evident on prior examination. ISTHMUS: Measures 0.6 cm. Normal echotexture and flow. Nodules: None OTHER FINDINGS: None . IMPRESSION: Multinodular thyroid. No suspicious masses.
--- NOTE | 2017-06-21 04:53 | CON ---
DATE: 06/20/2017 PULMONARY CONSULT: REFERRING PHYSICIAN: . REASON FOR CONSULTATION: Short of breath, pulmonary hypertension, may have sleep apnea syndrome. HISTORY OF PRESENT ILLNESS: This is a 37-year-old female known to have a hyperthyroidism, supposed to be on methimazole. Apparently from the last couple of months she missed her medications, now comes in with shortness of breath with minimal exertion. Denies any significant cough or sputum production. No nausea. No vomiting. No diarrhea. No leg pain or leg swelling. In the ER, she has had a tachycardia, was admitted, started on her medications. Endocrinology consult was called. The patient also seen by Cardiology. Feels better. Had echocardiogram done, which shows right ventricular systolic pressure around 60s. She does not know if she snores, daytime sleepy and tired. No nausea, no vomiting, no diarrhea. No leg pain or leg swelling. PAST MEDICAL HISTORY: Hyperthyroidism/Graves disease since age 20. PAST SURGICAL HISTORY: . ALLERGIES: ARE UNKNOWN. FAMILY HISTORY: Positive for hypertension, breast cancer. 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 MEDICATIONS: She is on aspirin 81 mg daily, Colace 100 mg twice a day, ferrous sulfate 325 mg three times a day, propranolol 60 mg daily started, Pepcid 40 mg daily, Tapazole 20 mg three times a day. REVIEW OF SYSTEMS: No headache. No rhinitis. Was short of breath, which improved. Does not know if she snores, daytime sleepy and tired. No nausea. No vomiting. No diarrhea. No leg pain or leg swelling. PHYSICAL EXAMINATION: GENERAL: In no acute distress. VITAL SIGNS: Temp is 98, heart rate is 66, respiratory rate is 18, blood pressure 105/65, pulse ox 99% on room air. HEENT: Moist mucous membrane. Crowded airway. Mallampati score is 4. NECK: Supple. No JVD. LUNGS: Have a fair airflow with rhonchi. HEART: S1 and S2. ABDOMEN: Soft, nontender. No organomegaly. EXTREMITIES: No edema. NEUROLOGICAL: Awake and alert. Follows simple command. LABORATORY DATA: Shows hemoglobin 8.3, hematocrit 30.7, WBC of 5.8, platelet is 285. INR 1.15. PTT is 29. Sodium 141. Potassium 3.8, chloride 106, bicarbonate 25, BUN 10, creatinine 0.3, glucose 77, calcium is 9.3, iron is 13. AST is 60, ALT is 44, alk phos is 110. Ferritin is 5.9. Vitamin D 29.9. T4 free is 4.98. Cortisol level in the morning 14.4. Urinalysis is unremarkable. Hepatitis profile is unremarkable. Echocardiogram shows good LV function, right ventricular ejection fraction as about 60. Had a chest x-ray done; no infiltrate or effusion noted. IMPRESSION AND PLAN: Hyperthyroidism/Graves disease; noncompliant with the medications. Severe anemia, which is iron deficiency. Also has a pulmonary hypertension. There may be a component of sleep apnea syndrome. Case discussed with medical policy specialist. The patient is being discharged home. As an outpatient, will do PFT, rule out lung disease causes of pulmonary hypertension. Also may need sleep study to assure there is no sleep apnea contributing to the pulmonary hypertension. Also could be non-compliant with medications and ended up having hyperthyroidism causing her high output failure ?. As the outpatient, we will rule out thromboembolic disease. The patient was informed about her diagnosis and urged her to follow up with my office for further workup. Nav Scott MD
--- NOTE | 2017-06-22 10:53 | PN ---
DATE: 06/20/2017 ENDOCRINOLOGY FOLLOWUP NOTE LOCATION: In room 561. SUBJECTIVE: This is a 37-year-old female presenting here with progressively worsening dyspnea on exertion and evaluated to have marked hyperthyroidism both historically, clinically, and biochemically as noted thereof. She also has hyperadrenergic manifestation with persistent tachycardia and constitutional manifestation of generalized weakness with easy fatigability and tiredness with progressive shortness of breath, especially on exertion. She also has marked insomnia with disruptive sleep patterns and progressive weight loss despite the . Her latest thyroid studies showed a T4 of greater than 24.9 with a free T4 of 4.98 and a TSH of less than 0.02. Chemistry showed a BUN of 10. Sodium 141, potassium 3.8, chloride 106, CO2 of 25, glucose 77, and creatinine 0.3. ASSESSMENT AND PLAN: This is a 37-year-old female with overt thyrotoxicosis, presented here with marked hyperthyroidism, both historically, clinically, and biochemically, most likely related to underlying disease with autoimmune thyroiditis and a concomitant diffuse toxic goiter as noted. Plan of management as discussed with the patient at length at bedside. We will maximize her dosing therapy with thiourea, with a suprapharmacologic dosing of Tapazole given as 20 mg p.o. t.i.d. today. We will titrate incrementally as indicated to optimize metabolic control. emphasized as noted. We will obtain serial chemistries and serial thyroid studies accordingly. Once again, the therapeutic options for continued medical therapy and/or radioactive iodine ablation and surgical resection with a near total thyroidectomy has been discussed with the patient at bedside. She will follow up closely with her milk of lime slaker from the outpatient for ongoing medical and endocrine management. Lyric Chiang MD
== END 2017-06-20 17:48 | disposition home or self-care (01) | DRG 645 ==
LOC: ED 16:35 → ERH 20:58 → 2RNO 23:27 → 3RSO 06-20 04:03 → ERH 06-20 04:25 → 5RNO 06-20 05:13
PROVIDERS: ADMIT Internal Medicine; ATTEND Hospitalist
DX: E05.00 Thyrotoxicosis with diffuse goiter without thyrotoxic crisis or storm (principal); I27.20 Pulmonary hypertension, unspecified; I07.1 Rheumatic tricuspid insufficiency; D50.9 Iron deficiency anemia, unspecified; E04.2 Nontoxic multinodular goiter; E06.3 Autoimmune thyroiditis; N92.0 Excessive and frequent menstruation with regular cycle; R94.31 Abnormal electrocardiogram [ECG] [EKG]; Z87.891 Personal history of nicotine dependence; Z98.51 Tubal ligation status; Z91.14 Patient's other noncompliance with medication regimen; Z82.49 Family history of ischemic heart disease and other diseases of the circulatory system; Z80.3 Family history of malignant neoplasm of breast